=== PATIENT | female | born 1985 ===

== ENCOUNTER 2017-01-21 09:26 | Day surgery (SDC) | payer OTHER ==
[2017-01-13 10:39] VITALS: BMI 26.7
[~2017-01-21 09:26] MED LIST: Bupivacaine-Epi 0.5%-1:200,000 PF Inj ONE; Bupivacaine/Epi 0.25%-1:200,000 10 ml PF inj IJ ONE; ceFAZolin IV 1 gm in Dextrose 50 ML IVPB ONE
[2017-01-21] MEDS ORDERED: Propofol 10 mg/ml Inj (20 ML) ONE ×2 (09:53→11:28)
[2017-01-21] MEDS ORDERED: Midazolam 2 MG/2 ML VIAL ONE (09:54)
[2017-01-21] MEDS ORDERED: Succinylcholine Chloride 20 mg/ml Syr (5 ml) IV ONE (09:55)
[2017-01-21] MEDS ORDERED: Lactated Ringer's 1,000 ML IV ONE ×2 (10:40→12:31)
[2017-01-21] MEDS ORDERED: HYDROmorphone 0.5 mg/0.5 ml ISec IVP PRN (11:17)
[2017-01-21] MEDS ORDERED: HYDROmorphone 0.5 mg/0.5 ml ISec ONE (12:02)
--- NOTE | 2017-01-21 12:06 | PCM.SURG1 ---
Surgeon's Initial Post Op Note - Surgeon's Notes Surgeon: Dr. Fung Metalizing Machine Operator: Dr. Cazares PGY1, Krissy Wilson CRNA Type of Anesthesia: General Endo Pre-Operative Diagnosis: Internal Hemorrhoids Operative Findings: see dictation Post-Operative Diagnosis: same Operation Performed: hemorrhoidectomy Specimen/Specimens Removed: internal hemorrhoids x2. external hemorrhoid Estimated Blood Loss: EBL {In ML}: 15 Blood Products Given: N/A Drains Used: No Drains Post-Op Condition: Good Date of Surgery/Procedure: 01/21/17 Time of Surgery/Procedure: 10:40
[2017-01-21] MEDS ORDERED: Oxycodone/Acetaminophen 5/325 mg Tab PO PRN (12:09)
[2017-01-21 12:44] VITALS: O2SAT 100
[2017-01-21 15:33] VITALS: BP 126/82; PULSE 75; RESP 18; TEMP 97.2
--- NOTE | 2017-01-24 21:18 | OP ---
PROCEDURE DATE: 01/21/2017 PREOPERATIVE DIAGNOSES: Grade IV prolapsed hemorrhoid as well as external hemorrhoid. POSTOPERATIVE DIAGNOSIS: Grade IV prolapsed hemorrhoid as well as external hemorrhoid. PROCEDURE DONE: 1. Examination under anesthesia. 2. Two column hemorrhoidectomy of left lateral and right posterior. 3. Left anterior external hemorrhoidectomy. SURGEON: Luis E Fung MD. STORE KEEPER: BRONWYN Justin. ANESTHESIA: General endotracheal tube anesthesia. ESTIMATED BLOOD LOSS: Around 20 mL. DRAINS: None. PATHOLOGY: The 2 column hemorrhoid as well as external hemorrhoid was sent for pathology. COMPLICATIONS: None. INTRAOPERATIVE FINDINGS: The patient had left lateral and left posterior as well as right posterior large prolapsed hemorrhoid and the patient had left anterior thrombosed hemorrhoid. INTRAOPERATIVE STEPS: This is a 31-year-old female who was diagnosed with grade IV prolapsed hemorrh oid. The patient was consented for the hemorrhoidectomy. The patient was brought to the OR, placed supine on the operating table. After induction of anesthesia, the patient was placed in a prone ketan knife position, the butt cheeks were taped apart and perineal area was prepped and draped and examina tion under anesthesia was done and patient found to have multiple prolapsed large hemorrhoid of the left lateral posterior as well as the right posterior. First the 2 column hemorrhoidectomy was done. After dissection of the mucocutaneous junction of the left lateral and left posterior the pedicle w as ligated and wound was closed with 2-0 Vicryl. The right posterior hemorrhoid, the mucocutaneous i ncision was made and dissection was carried down, the pedicle was ligated and wound was closed with 2 -0 Vicryl continuous suture. After that, patient had another left anterior external hemorrhoid that was also excised and wound was closed with a 2-0 Vicryl and dry sterile dressing was applied. The pa tient had no evidence of anal stenosis after the wound closures. After proper hemostasis, the Surgic el dressing was placed. The patient was extubated in the OR, sent to the postanesthesia care unit in stable condition. There was no apparent complication. The patient was extubated in the OR. The pa tient tolerated the procedure well. Count of instruments and gauze was correct. Luis E Fung MD cc: [id number] TT: 01/24/2017 21:17:32 jn
== END 2017-01-21 15:36 | disposition home or self-care (01) ==
LOC: C.SDS 09:26
PROVIDERS: ATTEND Surgery Surgical Critical Care
DX: K64.3 Fourth degree hemorrhoids (principal); K64.4 Residual hemorrhoidal skin tags
CPT/HCPCS: 46260; 88304; J0690; J1170; J1885; J2001; J2250; J2405; J2704; J3010; J7120

== ENCOUNTER 2017-01-24 13:27 | Emergency (ER) | payer OTHER ==
[2017-01-24 13:27] VITALS: BMI 26.7
[2017-01-24 14:31] LABS: URINE BILIRUBIN NEGATIVE (NEGATIVE); URINE BLOOD NEGATIVE (NEGATIVE); URINE COLOR Yellow (YELLOW); URINE GLUCOSE (UA) NORMAL (Normal); URINE KETONE TRACE mg/dL (NEGATIVE); URINE LEUKOCYTE ESTERASE NEG Leu/uL (Negative); URINE PROTEIN NEGATIVE (NEGATIVE); URINE UROBILINOGEN NORMAL mg/dL (0.2-1.0)
--- NOTE | 2017-01-24 14:42 | C.PDOC ---
History Of Present Illness The patient, a 31 y/o female who is s/p hemorrhoidectomy on 01/21/17, presents to the ED for evaluation of lower abdominal discomfort described as fullness and inability to urinate completely. She states she urinates and feels as though she needs to go more. Patient denies fever, chills, nausea, vomiting. Time Seen by Provider: 01/24/17 13:50 Chief Complaint (Nursing): Female Genitourinary History Per: Patient History/Exam Limitations: no limitations Onset/Duration Of Symptoms: Days Current Symptoms Are (Timing): Still Present Quality Of Discomfort: "Pain" Associated Symptoms: Urinary Symptoms. denies: Fever, Chills, Nausea, Vomiting Alleviating Factors: None Recent travel outside of the [place]: No Additional History Per: Patient Abnormal Vaginal Bleeding: No Past Medical History Reviewed: Historical Data, Nursing Documentation, Vital Signs Vital Signs: Last Vital Signs Temp 99.1 F 01/24/17 15:02 Pulse 85 01/24/17 15:02 Resp 20 01/24/17 15:02 BP 137/82 01/24/17 15:02 Pulse Ox 98 01/24/17 15:53 - Medical History PMH: No Chronic Diseases Surgical History: No Surg Hx - [facility] Procedures MANUAL ASSIST DELIV NEC (09/15/14) Family History: States: Unknown Family Hx - Social History Hx Tobacco Use: No Hx Alcohol Use: No Hx Substance Use: No - Immunization History Hx Tetanus Toxoid Vaccination: No Hx Influenza Vaccination: Yes Hx Pneumococcal Vaccination: No Review Of Systems Except As Marked, All Systems Reviewed And Found Negative. Constitutional: Negative for: Fever, Chills Gastrointestinal: Positive for: Abdominal Pain. Negative for: Nausea, Vomiting , Melena, Hematemesis Genitourinary: Positive for: Other (urinary sensation of fullness) Physical Exam - Physical Exam Appears: Non-toxic, No Acute Distress Skin: Normal Color, Warm, Dry Head: Atraumatic, Normacephalic Eye(s): bilateral: Normal Inspection, EOMI Oral Mucosa: Moist Neck: Normal ROM, Supple Chest: Symmetrical, No Deformity, No Tenderness Cardiovascular: Rhythm Regular, No Murmur Respiratory: Normal Breath Sounds, No Rales, No Rhonchi, No Wheezing Gastrointestinal/Abdominal: Soft, No Tenderness, No Guarding, No Rebound Back: Normal Inspection, No Vertebral Tenderness, No Paraspinal Tenderness Extremity: Normal ROM Neurological/Psych: Oriented x3, Normal Speech Gait: Steady ED Course And Treatment O2 Sat by Pulse Oximetry: 98 (on RA) Pulse Ox Interpretation: Normal Progress Note: Farrell catheter inserted by RN with 400ml of clear urine. Urine sent to lab for analysis and culture. UA results were negative for blood or infection. Patient remained afebrile well and in no acute distress. She feels better. Advise patient to follow up with urologist. 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 - Scribe Statement The provider has reviewed the documentation as recorded by the Scribe (Anjali Clayton) All medical record entries made by the Scribe were at my direction and personally dictated by me. I have reviewed the chart and agree that the record accurately reflects my personal performance of the history, physical exam, medical decision making, and the department course for this patient. I have also personally directed, reviewed, and agree with the discharge instructions and disposition.
[2017-01-24 15:03] VITALS: BP 137/82; PULSE 85; RESP 20; TEMP 99.1
[2017-01-24 15:31] VITALS: O2SAT 98
== END 2017-01-24 15:14 | disposition home or self-care (01) ==
LOC: C.ER 13:27
DX: N39.8 Other specified disorders of urinary system (principal)

== ENCOUNTER 2017-01-26 16:48 | Emergency (ER) | payer OTHER ==
[2017-01-26 16:48] VITALS: BMI 26.7
[2017-01-26 16:56] VITALS: BP 137/80; PULSE 97; RESP 18; TEMP 98.7; O2SAT 100
--- NOTE | 2017-01-26 17:22 | C.PDOC ---
History Of Present Illness REQUESTING CARTER REMOVAL. PLACED 01/24 Sp HEMORRHOIDECTOMY. PS HAS BEEN DRAINING WO DIFF. ASYMPT. EXAM NEG Time Seen by Provider: 01/26/17 17:13 Chief Complaint (Nursing): Female Genitourinary History Per: Patient History/Exam Limitations: no limitations Onset/Duration Of Symptoms: Days Current Symptoms Are (Timing): Better Recent travel outside of the [place]: No Past Medical History Reviewed: Historical Data, Nursing Documentation, Vital Signs Vital Signs: Last Vital Signs Temp 98.7 F 01/26/17 16:53 Pulse 97 H 01/26/17 16:53 Resp 18 01/26/17 16:53 BP 137/80 01/26/17 16:53 Pulse Ox 100 01/26/17 17:22 - Medical History PMH: No Chronic Diseases - [facility] Procedures MANUAL ASSIST OG NEC (09/15/14) Family History: States: Unknown Family Hx - Social History Hx Tobacco Use: No Hx Alcohol Use: No Hx Substance Use: No - Immunization History Hx Tetanus Toxoid Vaccination: No Hx Influenza Vaccination: Yes Hx Pneumococcal Vaccination: No Review Of Systems Except As Marked, All Systems Reviewed And Found Negative. Constitutional: Negative for: Fever, Chills Cardiovascular: Negative for: Chest Pain Respiratory: Negative for: Cough Gastrointestinal: Negative for: Nausea, Vomiting, Abdominal Pain, Diarrhea Skin: Negative for: Rash Physical Exam - Physical Exam Appears: Non-toxic, No Acute Distress Skin: Normal Color, Warm, Dry Head: Atraumatic, Normacephalic Oral Mucosa: Moist Chest: Symmetrical Cardiovascular: Rhythm Regular Respiratory: Normal Breath Sounds, No Rales, No Rhonchi, No Wheezing Gastrointestinal/Abdominal: Soft, No Tenderness Back: Normal Inspection Extremity: Normal ROM, Capillary Refill (< 2 sec.) Neurological/Psych: Oriented x3, Normal Speech, Normal Cognition ED Course And Treatment O2 Sat by Pulse Oximetry: 100 Pulse Ox Interpretation: Normal Disposition Counseled Patient/Family Regarding: Diagnosis, Need For Followup - Disposition Referrals: YOUR,PMD [Other] Disposition: HOME/ ROUTINE Disposition Time: 17:22 Condition: IMPROVED Forms: General Discharge Instructions - Clinical Impression Clinical Impression: Urinary catheter insertion/adjustment/removal - Scribe Statement The provider has reviewed the documentation as recorded by the Aidan Cardenas Provider Attestation: All medical record entries made by the Scribe were at my direction and personally dictated by me. I have reviewed the chart and agree that the record accurately reflects my personal performance of the history, physical exam, medical decision making, and the department course for this patient. I have also personally directed, reviewed, and agree with the discharge instructions and disposition.
== END 2017-01-26 17:41 | disposition home or self-care (01) ==
LOC: C.ER 16:48
DX: Z46.6 Encounter for fitting and adjustment of urinary device (principal)

== ENCOUNTER 2017-01-27 09:32 | Emergency (ER) | payer OTHER ==
[2017-01-27 09:32] VITALS: BMI 26.7
--- NOTE | 2017-01-27 10:47 | C.PDOC ---
History Of Present Illness 31 y/o female presents to the ED with complains of difficulty passing urine which onset 3 days ago. Pt reports recent hemorrhoid surgery. Pt was seen in ED 3 days ago for same, had ely placed. Pt seen again yesterday had ely removed and today reports difficulty urinating. Pt denies abdominal pain, fever , chills, back pain or any other complaints. Time Seen by Provider: 01/27/17 10:20 Chief Complaint (Nursing): Female Genitourinary History Per: Patient History/Exam Limitations: no limitations Onset/Duration Of Symptoms: Days, Intermittent Episodes Current Symptoms Are (Timing): Still Present Quality Of Discomfort: denies: "Pain" Associated Symptoms: denies: Fever, Nausea, Vomiting, Diarrhea, Back Pain Recent travel outside of the [place]: No Past Medical History Reviewed: Historical Data, Nursing Documentation, Vital Signs Vital Signs: Last Vital Signs Temp 98 F 01/27/17 09:45 Pulse 96 H 01/27/17 09:45 Resp 16 01/27/17 09:45 BP 132/92 H 01/27/17 09:45 Pulse Ox 98 01/27/17 10:48 - [facility] Procedures MANUAL ASSIST DELIV NEC (09/15/14) Family History: States: Unknown Family Hx - Social History Hx Tobacco Use: No Hx Alcohol Use: No Hx Substance Use: No - Immunization History Hx Tetanus Toxoid Vaccination: No Hx Influenza Vaccination: Yes Hx Pneumococcal Vaccination: No Review Of Systems Except As Marked, All Systems Reviewed And Found Negative. Constitutional: Negative for: Fever, Chills Gastrointestinal: Negative for: Nausea, Vomiting, Abdominal Pain, Diarrhea Genitourinary: Positive for: Other (difficulty urinating) Musculoskeletal: Negative for: Back Pain Physical Exam - Physical Exam Appears: Non-toxic, No Acute Distress Skin: Warm, Dry Head: Atraumatic, Normacephalic Chest: Symmetrical Cardiovascular: Rhythm Regular Respiratory: Normal Breath Sounds, No Rales, No Rhonchi, No Wheezing Gastrointestinal/Abdominal: Normal Exam, Soft, No Tenderness Extremity: Bilateral: Atraumatic Neurological/Psych: Oriented x3 ED Course And Treatment - Laboratory Results Urine POC: Negative O2 Sat by Pulse Oximetry: 98 (on room air) Pulse Ox Interpretation: Normal Progress Note: Plan: bladder scan, UA. Bladder scan < 85 ml in bladder. Treated with macrobid and pyridium. On re-evaluation abdomen soft Reassessment Condition: Improved Disposition Counseled Patient/Family Regarding: Studies Performed, Diagnosis, Need For Followup, Rx Given - Disposition Referrals: [facility] [Outside] [facility] [Outside] Disposition: HOME/ ROUTINE Disposition Time: 12:30 Condition: STABLE Additional Instructions: Follow up with clinic or PMD Prescriptions: Nitrofurantoin Macrocrystals [Macrobid] 1 cap PO BID #14 cap Phenazopyridine HCl [Pyridium] 200 mg PO Q8 #6 tablet Instructions: Urinary Tract Infection in Women (ED) - POA Present On Arrival: None - Clinical Impression Clinical Impression: Urinary problem, Urinary tract infection - 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 - Scribe Statement The provider has reviewed the documentation as recorded by the Russellibbrien Saenz All medical record entries made by the Aidan were at my direction and personally dictated by me. I have reviewed the chart and agree that the record accurately reflects my personal performance of the history, physical exam, medical decision making, and the department course for this patient. I have also personally directed, reviewed, and agree with the discharge instructions and disposition.
[2017-01-27 11:59] LABS: RBC URINE 1 /hpf (0-3); URINE BACTERIA MANY (<OCC); URINE BILIRUBIN NEGATIVE (NEGATIVE); URINE BLOOD NEGATIVE (NEGATIVE); URINE COLOR Amber (YELLOW); URINE GLUCOSE (UA) NORMAL (Normal); URINE KETONE TRACE mg/dL (NEGATIVE); URINE LEUKOCYTE ESTERASE 1+ Leu/uL (Negative); URINE PROTEIN 1+ mg/dL (NEGATIVE); URINE UROBILINOGEN NORMAL mg/dL (0.2-1.0); WBC URINE 8 /hpf (0-5)
[2017-01-27 13:13] VITALS: BP 131/88; PULSE 89; RESP 18; TEMP 98.7; O2SAT 96
== END 2017-01-27 13:13 | disposition home or self-care (01) ==
LOC: C.ER 09:32
DX: N39.0 Urinary tract infection, site not specified (principal); B96.20 Unspecified Escherichia coli [E. coli] as the cause of diseases classified elsewhere

== ENCOUNTER 2017-04-25 15:44 | Emergency (ER) | payer OTHER ==
[2017-04-25 15:45] VITALS: BMI 26.7
[2017-04-25 16:02] VITALS: RESP 18; O2SAT 100
[2017-04-25] MEDS ORDERED: Sodium Chloride 0.9% 1,000 ML IV ONE (16:28)
--- NOTE | 2017-04-25 16:37 | C.PDOC ---
History Of Present Illness 31 yr old female with , currently breast feeding since October, presents to the ER with complaints of nausea, vomiting, feeling weak and not being able to tolerate most PO for the last 8 days. Patient reports she is currently . States LMP was in December; pt delivered in October, and has been breast feeding since then. Patient denies fever, chest pain, SOB, diarrhea, dysuria, vaginal bleeding and vaginal discharge. Patient states she has not had any recent OBGYN visits. pt denies any abdominal pain, only nausea and vomiting. Time Seen by Provider: 04/25/17 16:09 Chief Complaint (Nursing): Abdominal Pain History Per: Patient History/Exam Limitations: no limitations Onset/Duration Of Symptoms: Days (8) Current Symptoms Are (Timing): Still Present Past Medical History Reviewed: Historical Data, Nursing Documentation, Vital Signs Vital Signs: Last Vital Signs Temp 97.7 F 04/25/17 18:14 Pulse 68 04/25/17 18:14 Resp 18 04/25/17 18:14 BP 117/77 04/25/17 18:14 Pulse Ox 100 04/25/17 18:59 - [facility] Procedures MANUAL ASSIST DELIV NEC (09/15/14) Family History: States: No Known Family Hx - Social History Hx Tobacco Use: No Hx Alcohol Use: No Hx Substance Use: No - Immunization History Hx Tetanus Toxoid Vaccination: No Hx Influenza Vaccination: Yes Hx Pneumococcal Vaccination: No Review Of Systems Constitutional: Positive for: Weakness, Other ((+) Unable to tolerate PO. ). Negative for: Fever Cardiovascular: Negative for: Chest Pain Respiratory: Negative for: Shortness of Breath Gastrointestinal: Positive for: Nausea, Vomiting. Negative for: Abdominal Pain , Diarrhea Genitourinary: Negative for: Dysuria, Incontinence, Vaginal Discharge, Vaginal Bleeding Skin: Negative for: Rash, Lesions Neurological: Negative for: Weakness, Numbness Physical Exam - Physical Exam Appears: Non-toxic, No Acute Distress Skin: Warm, Dry, No Rash Head: Atraumatic, Normacephalic Eye(s): bilateral: Normal Inspection Oral Mucosa: Moist Chest: Symmetrical, No Tenderness Cardiovascular: Rhythm Regular, No Murmur Respiratory: Normal Breath Sounds, No Rales, No Rhonchi, No Stridor, No Wheezing Gastrointestinal/Abdominal: Normal Exam, Soft, No Tenderness, No Guarding, No Rebound Back: Normal Inspection, No CVA Tenderness Extremity: Normal ROM, No Swelling Neurological/Psych: Oriented x3, Normal Speech, Normal Cognition ED Course And Treatment - Laboratory Results Result Diagrams: 04/25/17 17:16 04/25/17 17:16 O2 Sat by Pulse Oximetry: 100 Medical Decision Making Medical Decision Making: PLAN: * CBC * CMP * BETA * Urinalysis * Zofran IVP * Sodium Chloride IV * * [id number] p[t feeling much better, is hungry, and requesting food. pt given saltines and water, if pt tolerates po, she will be discharged with zofran and stencil maker terrance, 658 pm pt tolerating food and fluids, will d/c with zofran. safety in unclear; pt advised to pump and dump for 6 hours after taking zofran. Disposition Counseled Patient/Family Regarding: Studies Performed, Diagnosis, Need For Followup, Rx Given - Disposition Disposition: HOME/ ROUTINE Disposition Time: 18:48 Condition: STABLE Additional Instructions: Eat multiple small meals per day. Take Zofran if needed every 8 hours for nausea. Follow up as soon as possible with your manager endoscopy. Return to ER for any worsening symptoms. It is unclear if Zofran is safe with - recommended that you dump any breastmilk for 6 hours after taking a tab of Zofran. Discuss with your manager endoscopy. 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 - Scribe Statement The provider has reviewed the documentation as recorded by the Scribe Trisha Dumont All medical record entries made by the Aidan were at my direction and personally dictated by me. I have reviewed the chart and agree that the record accurately reflects my personal performance of the history, physical exam, medical decision making, and the department course for this patient. I have also personally directed, reviewed, and agree with the discharge instructions and disposition.
[2017-04-25 17:24] LABS: BASO % 0.4 % (0.0-2.0); EOS # 0.1 K/uL (0.0-0.7); EOS % 0.8 % (0.0-4.0); HEMOGLOBIN 12.5 g/dL (11.0-16.0); LYMPH # 1.9 K/uL (1.0-4.3); LYMPH % 20.3 % (20.0-40.0); MEAN CELL VOLUME 84.7 fL (81.0-99.0); MEAN CORPUSCULAR HEMOGLOBIN 27.8 pg (27.0-31.0); MEAN CORPUSCULAR HGB CONC 32.8 g/dL (33.0-37.0); MEAN PLATELET VOLUME 8.3 fL (7.2-11.7); MONO # 0.7 K/uL (0.0-0.8); MONO % 7.8 % (0.0-10.0); NEUT # 6.5 K/uL (1.8-7.0); NEUT % 70.7 % (50.0-75.0); RBC 4.5 Mil/uL (3.80-5.20); RED CELL DISTRIBUTION WIDTH 13.4 % (11.5-14.5); WHITE BLOOD COUNT 9.1 K/uL (4.8-10.8)
[2017-04-25 17:27] LABS: SQUAMOUS EPITHIAL 25 /hpf (0-5); URINE BILIRUBIN NEGATIVE (NEGATIVE); URINE BLOOD NEGATIVE (NEGATIVE); URINE CLARITY Hazy (Clear); URINE COLOR Amber (YELLOW); URINE GLUCOSE (UA) NORMAL (Normal); URINE LEUKOCYTE ESTERASE NEG Leu/uL (Negative); URINE NITRATE NEGATIVE (NEGATIVE); URINE PROTEIN 2+ mg/dL (NEGATIVE); URINE UROBILINOGEN NORMAL mg/dL (0.2-1.0)
[2017-04-25] MEDS ORDERED: Sodium Chloride 0.9% 1,000 ML ONE (17:36)
[2017-04-25 17:40] LABS: ALBUMIN 4.2 g/dL (3.5-5.0)
[2017-04-25 17:43] LABS: GFR AFRICAN-AMERICAN > 60; GFR NON-AFRICAN AMERICAN > 60
[2017-04-25 17:44] LABS: ALB/GLOB RATIO 1.2 (1.0-2.1); ALT/SGPT 13 U/L (9-52); AST/SGOT 17 U/L (14-36); BLOOD UREA NITROGEN 10 mg/dL (7-17); CALCIUM 9.4 mg/dl (8.6-10.4)
[2017-04-25 18:15] VITALS: BP 117/77; PULSE 68; TEMP 97.7
== END 2017-04-25 19:00 | disposition home or self-care (01) ==
LOC: C.ER 15:44
DX: O21.0 Mild hyperemesis gravidarum (principal); Z3A.00 Weeks of gestation of pregnancy not specified
CPT/HCPCS: 80053; 81001; 84702; 85025; 96361; 96374; 99285; J2405; J7040

== ENCOUNTER 2017-07-10 08:53 | Emergency (ER) | payer OTHER ==
[2017-07-10 08:53] VITALS: BMI 26.7
[2017-07-10 09:07] VITALS: RESP 16
--- NOTE | 2017-07-10 09:35 | C.PDOC ---
History Of Present Illness 31 yo female, 17 weeks gestation presnets with right hand "tingling" for last few weeks. pt states worse at night. pt states no fevers, known trauma. abdominal pain, vb, or other complaint. pt states symptoms worse to 1st 3 digits. Time Seen by Provider: 07/10/17 09:27 Chief Complaint (Nursing): Finger,Hand,&Wrist Past Medical History Reviewed: Historical Data, Nursing Documentation, Vital Signs Vital Signs: Last Vital Signs Temp 98.8 F 07/10/17 09:03 Pulse 94 H 07/10/17 09:03 Resp 16 07/10/17 09:03 BP 122/81 07/10/17 09:03 Pulse Ox 100 07/10/17 09:03 - [facility] Procedures MANUAL ASSIST DELIV NEC (09/15/14) Family History: States: Unknown Family Hx - Social History Hx Tobacco Use: No Hx Alcohol Use: No Hx Substance Use: No - Immunization History Hx Tetanus Toxoid Vaccination: No Hx Influenza Vaccination: No Hx Pneumococcal Vaccination: No Review Of Systems Except As Marked, All Systems Reviewed And Found Negative. Neurological: Positive for: Numbness Physical Exam - Physical Exam Appears: Well, No Acute Distress Skin: Normal Color, Warm, Dry Eye(s): bilateral: Normal Inspection, PERRL, EOMI Nose: Normal Throat: Normal Neck: Normal Cardiovascular: Rhythm Regular Respiratory: Normal Breath Sounds Gastrointestinal/Abdominal: Normal Exam Back: Normal Inspection Extremity: Normal ROM, Other ((+)tinels signs, phalens test, (+)motor/sensation intact) ED Course And Treatment O2 Sat by Pulse Oximetry: 100 Medical Decision Making Medical Decision Making: suspect carpel tunnel. pt otherwise well appeairng, denies truama, declines imaging. advise outpt management. Disposition - Disposition Referrals: Pardeep Dominguez MD [Staff Provider] - Cristian Khanna MD [Staff Provider] - Disposition: HOME/ ROUTINE Disposition Time: 09:35 Condition: STABLE Additional Instructions: please only take tylenol for the symptoms. return to er with worsening symptoms or concerns. Instructions: Paresthesia (ED), Carpal Tunnel Syndrome (ED) - Clinical Impression Clinical Impression: Hand numbness
[2017-07-10 09:44] VITALS: BP 125/85; PULSE 70; TEMP 97.1; O2SAT 98
== END 2017-07-10 09:43 | disposition home or self-care (01) ==
LOC: C.ER 08:53
DX: O26.892 Other specified pregnancy related conditions, second trimester (principal); Z3A.17 17 weeks gestation of pregnancy; R20.0 Anesthesia of skin